=== PATIENT | male | born 1970 | race American Indian/Alaskan Native ===

== ENCOUNTER 2021-01-11 01:47 | Emergency (ER) | payer OTHER ==
--- NOTE | 2021-01-11 01:56 | Emergency Department Report ---
ED Shortness of Breath HPI - General Stated Complaint: RAMESH Time Seen by Provider: 01/11/21 01:51 Source: patient, EMS Mode of arrival: Stretcher Limitations: No Limitations - History of Present Illness Initial Comments: Patient is a 50-year-old female that presents emergency room with complaints of shortness of breath, chest pain and cough. Patient states she was diagnosed wit h Covid on January 05. Patient states his symptoms worsen. Patient dates chest pain shortness of breath started 1 hour ago. Patient states symptoms worsen. Patient dates he feels he can get his breath. Patient brought in by EMS. Report received from EMS. EMS states that the patient's vital signs were stable in route. Patient denies nausea and vomiting. Patient complains of diarrhea. Patient denies loss of taste and smell. Patient states he has not had his COVID-19 vaccine. MD Complaint: shortness of breath, cough, chest pain -: Sudden Severity: severe Pain Scale: 7 Quality: aching Consistency: constant Improves With: rest Worsens With: movement, coughing Context: recent URI Associated Symptoms: chest pain, fever, cough Treatments Prior to Arrival: none - Related Data Home Oxygen Therapy: No Previous Rx's Medication Instructions Recorded Last Taken Type Acetaminophen [Acetaminophen TAB] 1,000 mg PO Q6HR PRN #30 tablet 02/18/20 Un known Rx Methyl Salicylate/Menthol [[place] 1 applicatio TP TID PRN #1 tube 02/18/20 Unknown Rx [facility] Active 16%-8% Gel] Azithromycin [Zithromax TAB] 500 mg PO QDAY 5 Days #5 tablet 01/11/21 Unknown Rx Ondansetron [Zofran Odt] 4 mg PO Q6HR PRN #20 tab.rapdis 01/11/21 Unknown Rx methylPREDNISolone [Medrol 4MG 4 mg PO DAILY 6 Days #1 tab.ds.pk 01/11/21 Unknown Rx DOSEPAK (21 tabs)] Allergies Allergy/AdvReac Type Severity Reaction Status Date / Time No Known Allergies Allergy Verified 01/11/21 02:13 ED Review of Systems ROS: Stated complaint: RAMESH Other details as noted in HPI Constitutional: chills, fever, malaise Eyes: denies: eye pain, eye discharge, vision change ENT: denies: ear pain, throat pain Respiratory: see HPI, cough, shortness of breath. denies: wheezing Cardiovascular: as per HPI, chest pain. denies: palpitations Endocrine: no symptoms reported Gastrointestinal: denies: abdominal pain, nausea, diarrhea Genitourinary: denies: urgency, dysuria Musculoskeletal: denies: back pain, joint swelling, arthralgia Skin: denies: rash, lesions Neurological: denies: headache, weakness, paresthesias Psychiatric: denies: anxiety, depression Hematological/Lymphatic: denies: easy bleeding, easy bruising ED Past Medical Hx - Past Medical History Previous Medical History?: No - Surgical History Past Surgical History?: No - Family History Family history: no significant - Social History Smoking Status: Never Smoker Substance Use Type: Alcohol, Marijuana - Medications Home Medications: Home Medications Medication Instructions Recorded Confirmed Last Taken Type Acetaminophen [Acetaminophen TAB] 1,000 mg PO Q6HR PRN #30 tablet 02/18/20 Unknown Rx Methyl Salicylate/Menthol [[place] 1 applicatio TP TID PRN #1 tube 02/18/20 Unknown Rx [facility] Active 16%-8% Gel] Azithromycin [Zithromax TAB] 500 mg PO QDAY 5 Days #5 tablet 01/11/21 Unknown Rx Ondansetron [Zofran Odt] 4 mg PO Q6HR PRN #20 tab.rapdis 01/11/21 Unknown Rx methylPREDNISolone [Medrol 4MG 4 mg PO DAILY 6 Days #1 tab.ds.pk 01/11/21 Unknown Rx DOSEPAK (21 tabs)] ED Physical Exam - General Limitations: No Limitations General appearance: alert, in no apparent distress - Head Head exam: Present: atraumatic, normocephalic - Eye Eye exam: Present: normal appearance - ENT ENT exam: Present: mucous membranes moist - Neck Neck exam: Present: normal inspection - Respiratory Respiratory exam: Present: normal lung sounds bilaterally. Absent: respiratory distress - Cardiovascular Cardiovascular Exam: Present: regular rate, normal rhythm. Absent: systolic murmur, diastolic murmur, rubs, gallop - GI/Abdominal GI/Abdominal exam: Present: soft, normal bowel sounds - Rectal Rectal exam: Present: deferred - Extremities Exam Extremities exam: Present: normal inspection - Back Exam Back exam: Present: normal inspection - Neurological Exam Neurological exam: Present: alert, oriented X3 - Psychiatric Psychiatric exam: Present: normal affect, normal mood - Skin Skin exam: Present: warm, dry, intact, normal color. Absent: rash ED Course Vital Signs 01/11/21 01/11/21 01/11/21 01:46 01:57 02:00 Temperature 100.2 F H Pulse Rate 113 H Respiratory 18 Rate Blood Pressure 134/87 134/87 134/87 Blood Pressure 134/87 [Left] O2 Sat by Pulse 99 100 98 Oximetry 01/11/21 01/11/21 01/11/21 02:30 03:00 03:03 Temperature Pulse Rate 112 H Respiratory 24 20 Rate Blood Pressure 122/86 122/86 Blood Pressure [Left] O2 Sat by Pulse 98 90 Oximetry 01/11/21 01/11/21 01/11/21 03:31 04:01 04:31 Temperature Pulse Rate 106 H 111 H 113 H Respiratory 26 H 28 H 13 Rate Blood Pressure 132/88 132/88 140/92 Blood Pressure [Left] O2 Sat by Pulse 98 94 98 Oximetry - Reevaluation(s) Reevaluation #1: Patient states he is feeling much better. Patient is receiving his meds. Patient states his shortness of breath has improved. Patient states his chest pain has resolved. 01/11/21 04:39 Reevaluation #2: I discussed all results and clinical findings with patient. I discussed plan of care with patient. Patient agrees with plan of care. Patient is stable for discharge. Patient will be discharged home. Patient given discharge instructions. Patient voiced understanding of discharge instructions. 01/11/21 05:50 ED Medical Decision Making - Lab Data Result diagrams: 01/11/21 02:28 01/11/21 02:28 - EKG Data -: EKG Interpreted by Me EKG shows normal: sinus rhythm, axis, intervals, QRS complexes, ST-T waves Rate: tachycardia - Radiology Data Radiology results: report reviewed, image reviewed interpreted by me: Chest x-ray: No pneumonia, no pneumothorax, no foreign body, no osseous findings, no acute findings - Medical Decision Making Patient is a 50-year-old male who presents emergency room with complaints of chest pain and shortness of breath. Patient also had a recent diagnosis of Covid. Patient brought in by EMS. Patient had a chest x-ray which was negative for acute findings. Patient had an EKG which was negative for acute except for sinus tachycardia. Patient ST segments are normal. I personally reviewed the chest x-ray and EKG. Patient had labs done which were essentially unremarkable. Patient given Zithromax, Rocephin and Decadron after initial evaluation. Patient responded well and his symptoms improved. He states he felt much better after therapy. Patient had a second troponin which was negative. Patient is stable for discharge. Patient discharged home. Patient given COVID-19 precautions. Patient given quarantine precautions. Patient stable for discharge.. - Differential Diagnosis Covid, pneumonia, shortness of breath, chest pain, chest wall pain Critical care attestation.: If time is entered above; I have spent that time in minutes in the direct care of this critically ill patient, excluding procedure time. ED Disposition Clinical Impression: COVID-19, Shortness of breath Chest pain Qualifiers: Chest pain type: unspecified Qualified Code(s): R07.9 - Chest pain, unspecified Fever Qualifiers: Fever type: unspecified Qualified Code(s): R50.9 - Fever, unspecified Disposition: DC- TO HOME OR SELFCARE Is pt being admited?: No Does the pt Need Aspirin: No Condition: Stable Instructions: Nonspecific Chest Pain, Adult, Shortness of Breath, Adult, [id number], COVID-19 Frequently Asked Questions, Chest Wall Pain, Easy-to-R ead, COVID-19, COVID-19: How to Protect Yourself and Others - CDC, Prevent the Spread of COVID-19 if You Are Sick - CDC Additional Instructions: Patient to follow-up with primary care in 2 to 3 days. Patient to self quarantine for 14 days. Patient to increase vitamin C, vitamin D and zinc. Patient to follow CDC guidelines for COVID-19. Patient to continue to use masks . Patient to have COVID-19 vaccine. Patient to rest. Patient to increase water. Patient to take Tylenol or ibuprofen as needed for pain. Patient to take meds as directed. Patient to return to the ER if condition worsens, changes or new symptoms arise. Prescriptions: methylPREDNISolone [Medrol 4MG DOSEPAK (21 tabs)] 4 mg PO DAILY 6 Days #1 tab.ds.pk Azithromycin [Zithromax TAB] 500 mg PO QDAY 5 Days #5 tablet Ondansetron [Zofran Odt] 4 mg PO Q6HR PRN #20 tab.rapdis PRN Reason: Nausea And Vomiting Referrals: SHREE VARGAS MD [Staff Physician] - 2-3 Days Time of Disposition: 05:45
[2021-01-11] MEDS ORDERED: cefTRIAXone/NS 2 GM/100 ML 2 GM/100 ML BAG IV ONE ×2 (01:57→03:00)
[2021-01-11] MEDS ORDERED: ONDANSETRON 4 MG/2 ML INJ IV ONE (01:57)
[2021-01-11] MEDS ORDERED: dexAMETHasone 4 MG/ML VIAL IV ONE ×2 (01:57→03:00)
[2021-01-11] MEDS ORDERED: AZITHROMYCIN/NS 500 MG/250 ML 500 MG/250 ML BAG IV SCH (02:00)
--- NOTE | 2021-01-11 02:27 | XRay Report ---
CHEST 1 VIEW 01/11/2021 1:15 AM INDICATION / CLINICAL INFORMATION: Chest Pain. COMPARISON: None available. FINDINGS: SUPPORT DEVICES: None. HEART / MEDIASTINUM: Borderline. LUNGS / PLEURA: No significant pulmonary or pleural abnormality. No pneumothorax. Diminished lung vol umes. ADDITIONAL FINDINGS: No significant additional findings. IMPRESSION: No acute abnormality. Signer Name: Valentino Singer MD Signed: 01/11/2021 2:22 AM Workstation Name: [id number]
[2021-01-11 02:37] LABS: Hematocrit 44.6 % (35.5-45.6); Mean Corpuscular HGB Conc 34 % (32-34); Mean Corpuscular Volume 86 fl (84-94); Platelet Count 203 K/mm3 (140-440); Red Blood Count 5.19 M/mm3 (3.65-5.03); Red Cell Distribution Width 13.7 % (13.2-15.2)
[2021-01-11 03:01] LABS: Alanine Aminotransferase 48 units/L (7-56); Albumin 4.4 g/dL (3.9-5); BUN/Creatinine Ratio 14; Blood Urea Nitrogen 18 mg/dL (9-20); Calcium 8.8 mg/dL (8.4-10.2); Hemolysis Index 2
[2021-01-11 03:12] LABS: Total Cells Counted 100
[2021-01-11 03:13] LABS: RBC Morphology Normal
[2021-01-11 06:41] VITALS: BP 104/69
--- NOTE | 2021-01-15 17:28 | Electrocardiograph Report ---
[facility] Test Date: 2021-01-11 Test Time: 02:39:14 Pat Name: EMPERATRIZ ZAMBRANO Department: Room: Gender: M [employer]: : 1970 Requested By: SALLY BAPTISTE III Order Number: [id number] Reading MD: Cleopatra Edmond Measurements Intervals [place] Rate: 110 P: 49 IA: 152 QRS: 82 QRSD: 93 T: -35 QT: 307 QTc: 415 Interpretive Statements Sinus tachycardia Possible inferior infarct, age indeterminate Nonspecific T abnormalities, lateral leads No previous ECG available for comparison Electronically Signed On 01-15-2021 17:28:17 EDT by Cleopatra Edmond
== END 2021-01-11 06:30 | disposition home or self-care (01) ==
LOC: ED 01:47
DX: U07.1 COVID-19 (principal); R06.02 Shortness of breath; R07.89 Other chest pain; R05 Cough; F12.10 Cannabis abuse, uncomplicated; Z79.2 Long term (current) use of antibiotics; Z79.899 Other long term (current) drug therapy
CPT/HCPCS: 36415; 71045; 80053; 84484; 85007; 85025; 93005; 96365; 96367; 96375; 99284; J0456; J0696; J1100; J2405